=== PATIENT | male | born 1980 ===

== ENCOUNTER 2020-03-18 12:31 | Inpatient (IN) | payer OTHER ==
[~2020-03-18] VITALS: Ht 185.4 cm; Wt 127.0 kg
[2020-03-18] MEDS ORDERED: [UNRECOGNIZED DRUG - OTHER] (12:43)
[2020-03-18] MEDS ORDERED: CARAFATE1 GM (12:44)
[2020-03-18] MEDS ORDERED: FLAGYL500MG (12:44)
[2020-03-19] MEDS ORDERED: ATACAND16 MG (10:02)
== END 2020-03-26 17:18 | disposition home or self-care (01) | DRG 392 ==
LOC: ER 12:31 → SURG 18:49
PROVIDERS: ADMIT Colon & Rectal Surgery; ATTEND Colon & Rectal Surgery
PROC: 0DJ08ZZ Inspection of Upper Intestinal Tract, Via Natural or Artificial Opening Endoscopic (ICD-10-PCS; principal; 2020-03-25)
DX: K57.20 Diverticulitis of large intestine with perforation and abscess without bleeding (principal); K92.1 Melena; I10 Essential (primary) hypertension; E66.9 Obesity, unspecified; K29.70 Gastritis, unspecified, without bleeding; T36.8X5A Adverse effect of other systemic antibiotics, initial encounter

== ENCOUNTER 2020-04-06 11:15 | Inpatient (IN) | payer OTHER ==
[~2020-04-06] VITALS: Ht 185.4 cm; Wt 122.9 kg
[~2020-04-06 11:15] MED LIST: ATACAND16 MG; CARAFATE1 GM; FLAGYL500MG; [UNRECOGNIZED DRUG - OTHER]
[2020-04-06] MEDS ORDERED: PROTONIX40 MG PO (14:29)
== END 2020-04-16 17:04 | disposition home or self-care (01) | DRG 330 ==
LOC: SURG 04-13 05:20 → O/R 04-13 05:20 → SURG 04-13 05:20 → SURH 04-13 11:15 → SURG 04-13 22:05
PROVIDERS: ADMIT Colon & Rectal Surgery; ATTEND Colon & Rectal Surgery
PROC: 0TQB4ZZ Repair Bladder, Percutaneous Endoscopic Approach (ICD-10-PCS; 2020-04-13)
PROC: 0DQ84ZZ Repair Small Intestine, Percutaneous Endoscopic Approach (ICD-10-PCS; 2020-04-13)
PROC: 0DUU47Z Supplement Omentum with Autologous Tissue Substitute, Percutaneous Endoscopic Approach (ICD-10-PCS; 2020-04-13)
PROC: 4A033R1 Measurement of Arterial Saturation, Peripheral, Percutaneous Approach (ICD-10-PCS; 2020-04-13)
PROC: 0DTN4ZZ Resection of Sigmoid Colon, Percutaneous Endoscopic Approach (ICD-10-PCS; principal; 2020-04-13 13:00)
PROC: 4A12X4Z Monitoring of Cardiac Electrical Activity, External Approach (ICD-10-PCS; 2020-04-14)
DX: K57.32 Diverticulitis of large intestine without perforation or abscess without bleeding (principal); N32.1 Vesicointestinal fistula; K91.71 Accidental puncture and laceration of a digestive system organ or structure during a digestive system procedure; N99.71 Accidental puncture and laceration of a genitourinary system organ or structure during a genitourinary system procedure; K57.20 Diverticulitis of large intestine with perforation and abscess without bleeding; I11.9 Hypertensive heart disease without heart failure; E66.9 Obesity, unspecified; K29.70 Gastritis, unspecified, without bleeding; K66.0 Peritoneal adhesions (postprocedural) (postinfection)

== ENCOUNTER 2021-06-03 05:25 | Day surgery (SDC) | payer OTHER ==
[~2021-06-03 05:25] MED LIST changes: +PROTONIX40 MG PO
== END 2021-06-03 09:50 | disposition home or self-care (01) ==
LOC: AMB-ENDOS 05:25
PROVIDERS: ATTEND Colon & Rectal Surgery
DX: D12.9 Benign neoplasm of anus and anal canal (principal)